=== PATIENT | male | born 1990 | race Caucasian/White ===

== ENCOUNTER 2016-08-10 14:01 | Emergency (ER) | payer SELFPAY ==
[~2016-08-10] VITALS: Ht 175.3 cm; Wt 85.5 kg
[2016-08-10 14:05] VITALS: TEMP 98.4
[2016-08-10 15:37] LABS: BASO % 0.3 % (0.0-2.0); EOS % 0.6 % (0-4.0); GRAN # 4.8 (1.4-6.5); GRAN % 74.7 % (42.2-75.2); HEMATOCRIT 45.1 % (42.0-52.0); HEMOGLOBIN 15.5 g/dl (13.5-18.0); LYMPH % 14.7 % (20.0-51.0); MEAN CELL VOLUME 82 fl (80.0-100.0); MEAN CORPUSCULAR HEMOGLOBIN 28 pg (27.0-31.0); MEAN CORPUSCULAR HGB CONC 34 g/dl (33.0-37.0); MEAN PLATELET VOLUME 10.8 fl (7.4-10.4); MONO # 0.6 (0.1-0.6); MONO % 9.5 % (1.7-9.3); PLATELET COUNT 234 K/mm3 (130-400); RED BLOOD COUNT 5.49 M/mm3 (4.20-5.60); REDCELL DISTRIBUTION WIDTH-CV 13.2 % (11.5-14.5); WHITE BLOOD COUNT 6.5 K/mm3 (4.8-10.8)
[2016-08-10 15:44] LABS: INFLUENZA B NEGATIVE
[2016-08-10 15:55] LABS: ADJUSTED CALCIUM 9.3 mg/dL (8.4-10.2); ALBUMIN 4.4 gm/dL (3.5-5.0); BILIRUBIN,TOTAL 0.8 mg/dL (0.0-1.0); C-REACTIVE PROTEIN 2.1 mg/dL (0.0-0.9); CALCIUM 9.6 mg/dL (8.4-10.2); CREATININE, serum 1.16 mg/dL (0.66-1.25); POTASSIUM 4.1 mmol/L (3.4-5.0); TOTAL PROTEIN 8.4 gm/dL (6.4-8.2)
[2016-08-10] MEDS ORDERED: TAMIFLU 75MG75 MG PO (16:16)
[2016-08-10] MEDS ORDERED: LEVAQUIN 5500 MG/TA1 PO (16:16)
[2016-08-10] MEDS ORDERED: NORCO 325 MG-51 TAB PO (16:16)
[2016-08-10 16:48] VITALS: BP 131/85; PULSE 79
== END 2016-08-10 16:49 | disposition home or self-care (01) ==
LOC: COL.ER 14:01
PROVIDERS: Emergency Medicine
DX: J11.00 Influenza due to unidentified influenza virus with unspecified type of pneumonia (principal); M89.9 Disorder of bone, unspecified; R51 Headache; Z85.038 Personal history of other malignant neoplasm of large intestine; Z90.49 Acquired absence of other specified parts of digestive tract
CPT/HCPCS: J2405; J7030